=== PATIENT | male | born 1970 | race African-American/Black ===

== ENCOUNTER 2017-04-27 16:02 | Emergency (ER) | payer OTHER ==
[~2017-04-27] VITALS: Ht 190.5 cm; Wt 111.1 kg
[2017-04-27 16:08] VITALS: BP 155/106
[2017-04-27] MEDS ORDERED: KETOROLAC TROMETHAMINE 60 MG/2 ML INJ. IM ONE (16:45)
--- NOTE | 2017-04-27 16:46 | PHYS DOC ---
Past Medical History Past Medical History: No Pertinent History Past Surgical History: No Surgical History Alcohol Use: Rarely Drug Use: None Adult General Chief Complaint Chief Complaint: LOWER BACK PAIN OR INJURY HPI HPI Patient is a 46 year old male with no significant medical history who presents with moderate bilateral low back pain radiating to the left lower extremity. Patient states his low back pain began 2 weeks ago and then yesterday it started radiating to the left lower extremity, he states the pain is worse when he is sitting down. Patient denies any loss of bowel bladder function. Denies any numbness or tingling to bilateral lower extremities. He is currently standing up. Review of Systems Review of Systems Constitutional: Denies fever or chills [] GI: Denies abdominal pain, nausea, vomiting, bloody stools or diarrhea [] : Denies dysuria or hematuria [] Musculoskeletal: Low back pain Integument: Denies rash or skin lesions [] Neurologic: Denies headache, focal weakness or sensory changes [] Endocrine: Denies polyuria or polydipsia [] Current Medications Current Medications Current Medications Medications (Trade) Dose Ordered Sig/Tamie Start Time Stop Time Status Last Admin Dose Admin Dexamethasone Sodium Phosphate (Decadron) 10 mg 1X ONCE 04/27/17 17:00 04/27/17 17:01 Ketorolac Tromethamine (Toradol Im) 60 mg 1X ONCE 04/27/17 16:45 04/27/17 16:46 DC Allergies Allergies Allergies Coded Allergies Type Severity Reaction Last Updated Verified No Known Drug Allergies 04/27/17 No Physical Exam Physical Exam Constitutional: Well developed, well nourished, no acute distress, non-toxic appearance. [] Abdomen: Bowel sounds normal, soft, no tenderness, no masses, no pulsatile masses. [] Skin: Warm, dry, no erythema, no rash. [] Back: Diffuse paraspinal muscle tenderness to bilateral low lumbar region worse on bilateral SI joints, no midline lumbar spine tenderness, no CVA tenderness. Unable to do straight leg raises patient is standing for comfort Extremities: No tenderness, no cyanosis, no clubbing, ROM intact, no edema. [] Neurologic: Alert and oriented X 3, normal motor function, normal sensory function, no focal deficits noted. [] Psychologic: Affect normal, judgement normal, mood normal. [] Current Patient Data Vital Signs Vital Signs Date Time Temp Pulse Resp B/P (MAP) Pulse Ox O2 Delivery O2 Flow Rate FiO2 04/27/17 16:08 97.5 89 18 96 Room Air 97.5 EKG EKG [] Radiology/Procedures Radiology/Procedures []PROCEDURE: LUMBAR SPINE 2-3V Lumbar spine, 3 views, 04/27/2017: History: Back pain radiating into the left thigh No fracture or dislocation is identified. The intervertebral disc spaces are well-maintained. There are only tiny marginal spurs. The paraspinous soft tissues are unremarkable. IMPRESSION: No acute lumbar spine abnormality is detected. DICTATED and SIGNED BY: WHITNEY DONOVAN MD DATE: 04/27/17 8224 CC: SHAGGY MORENO APRN; NO PCP; NON,STAFF ~ Course & Med Decision Making Course & Med Decision Making Pertinent Labs and Imaging studies reviewed. (See chart for details) This is a 46-year-old male patient who presents today with severe bilateral low back pain radiating to the left lower extremity with no known injury. Lumbar spine x-rays interpreted by radiologist are negative for any acute findings. Patient appears to be in a lot of pain. He can barely sit down. We offered the IM shots in the ED he refused. Given prescription for naproxen and Flexeril Medrol Dosepak and hydrocodone. Provided him a doctor's list for follow-up in 1- 2 weeks. Discharged in stable condition. Dragon Disclaimer Dragon Disclaimer This electronic medical record was generated, in whole or in part, using a voice recognition dictation system. Departure Departure Impression: Primary Impression: Low back pain Additional Impression: Left sciatic nerve pain Disposition: 01 HOME, SELF-CARE Condition: STABLE Referrals: NO PCP (PCP) Follow-up with your doctor or a doctor from the list provided in one week Patient Instructions: Back Pain, Adult, Sciatica Additional Instructions: You were seen for low back pain with sciatica. Take the prescribed medicines as ordered. You can apply heat to your back. Follow-up with a doctor from the list provided in 1-2 weeks. Come back to the ED if symptoms worsen. Scripts Cyclobenzaprine Hcl (CYCLOBENZAPRINE HCL) 10 Mg Tablet 1 TAB PO TID, #90 TAB 1 Refill Prov: SHAGGY MORENO APRN 04/27/17 Naproxen (NAPROXEN) 500 Mg Tablet. 1 TAB PO BID, #60 TAB 2 Refills Prov: SHAGGY MORENO BRODIE 04/27/17 Methylprednisolone (MEDROL) 4 Mg Tab.ds.pk 1 PKG PO UD, #1 PKG Prov: SHAGGY MORENO BRODIE 04/27/17 Hydrocodone/Apap 5-325 (NORCO 5-325 TABLET) 1 Each Tablet 1-2 TAB PO Q4-6HRS Y for PAIN, #20 TAB Prov: ELLIESHAGGY Espinoza BRODIE 04/27/17 Problem Qualifiers Primary Impression: Low back pain Chronicity: acute Back pain laterality: bilateral Sciatica presence: with sciatica Sciatica laterality: sciatica of left side Qualified Codes: M54.42 - Lumbago with sciatica, left side SHAGGY MORENO BRODIE Apr 27, 2017 16:46
--- NOTE | 2017-04-27 16:56 | RAD ---
Lumbar spine, 3 views, 04/27/2017: History: Back pain radiating into the left thigh No fracture or dislocation is identified. The intervertebral disc spaces are well-maintained. There are only tiny marginal spurs. The paraspinous soft tissues are unremarkable. IMPRESSION: No acute lumbar spine abnormality is detected.
[2017-04-27] MEDS ORDERED: DEXAMETHASONE SOD PHOS 20 MG/5 ML VIAL. IM ONE (17:00)
[2017-04-27] MEDS ORDERED: METH4TAB2 PO (17:07)
[2017-04-27] MEDS ORDERED: NAPR500T8 PO (17:07)
[2017-04-27] MEDS ORDERED: CYCL10TA2 PO (17:07)
[2017-04-27] MEDS ORDERED: HYDR-971 PO (17:07)
== END 2017-04-27 17:16 | disposition home or self-care (01) ==
LOC: ER 16:02
DX: M54.42 Lumbago with sciatica, left side (principal)
CPT/HCPCS: 72100; 99284